=== PATIENT | female | born 1980 | race Hispanic/Latino ===

== ENCOUNTER 2017-08-22 16:15 | Emergency (ER) | payer MEDICAID, OTHER ==
[2017-08-22 16:35] VITALS: BMI 28.8
[2017-08-22 16:38] VITALS: RESP 18; TEMP 98.7
[2017-08-22 18:15] VITALS: O2SAT 96
[2017-08-22] MEDS ORDERED: Tetracaine 0.5% Ophth 2 ML BOTTLE OD STA (18:42)
[2017-08-22] MEDS ORDERED: Tetracaine 0.5% Ophth 2 ML BOTTLE ONE (18:47)
--- NOTE | 2017-08-22 19:01 | ED PDOC ---
Arrival/HPI - General Chief Complaint: Eye Problem Time Seen by Provider: 08/22/17 18:42 Historian: Patient - History of Present Illness Narrative History of Present Illness (Text): 08/22/17 18:53 37-year-old female presents to with foreign body sensation to the right eye. Patient states around 2:30 in the afternoon she felt as if something may have flown into the eye. Patient states she then rubbed her eye and developed pain in the eye. Patient denies headache dizziness or weakness. Patient complaining of burning sensation to the eye. On a side note, Patient states she has been noticing that her vision has been gradually worsening over months now. Patient states she needs to get to the eye doctor but hasn't followed up yet. Patient states while in the emergency room she was crying because her grandfather is 6 and she feels has if the symptoms have resolved. pt also with hx of seasonal allergies. Time/Duration: Other (230pm) Past Medical History - Provider Review Nursing Documentation Reviewed: Yes - Travel History Have you recently traveled outside [place] w/in the past 3 mons?: No - Infectious Disease Hx of Infectious Diseases: None - Musculoskeletal/Rheumatological Hx Back Pain: Yes - Genitourinary/Gynecological Hx Cervical Cancer: Yes - Psychiatric Hx Anxiety: Yes Hx Depression: No Hx Emotional Abuse: No Hx Physical Abuse: No Hx Substance Use: No - Surgical History Hx Cholecystectomy: Yes Hx Tubal Ligation: Yes Other/Comment: CONE BX - Anesthesia Hx Anesthesia: Yes Hx Anesthesia Reactions: No Hx Malignant Hyperthermia: No - Suicidal Assessment Feels Threatened In Home Enviroment: No Family/Social History - Physician Review Nursing Documentation Reviewed: Yes Family/Social History: Unknown Family HX Smoking Status: Heavy Smoker > 10 Cigarettes Daily Hx Alcohol Use: Yes Frequency of alcohol use: Socially Hx Substance Use: No Hx Substance Use Treatment: No Allergies/Home Meds Allergies/Adverse Reactions: Allergies peanut Allergy (Verified 05/28/15 15:10) ANGIOEDEMA Home Medications: Home Meds Medication Instructions Recorded Confirmed ALPRAZolam [Xanax] 1 tab PO BID 08/22/17 08/22/17 oxyCODONE [oxyCODONE Immediate 1 tab PO QID 08/22/17 08/22/17 Release Tab] Review of Systems - Review of Systems Constitutional: absent: Fatigue, Fevers Eyes: Photophobia, Eye Pain, Other (eye irritation) Respiratory: absent: SOB, Cough Cardiovascular: absent: Chest Pain, Palpitations Gastrointestinal: absent: Abdominal Pain, Nausea, Vomiting Genitourinary Female: absent: Dysuria Musculoskeletal: absent: Arthralgias Skin: Pruritis (itchy eyes). absent: Rash Neurological: absent: Headache, Dizziness Physical Exam Vital Signs Reviewed: Yes Vital Signs Temp Pulse Resp BP Pulse Ox 08/22/17 18:14 79 18 114/71 96 08/22/17 16:37 98.7 F 84 18 116/79 95 Temperature: Afebrile Blood Pressure: Normal Pulse: Regular Respiratory Rate: Normal Appearance: Positive for: Well-Appearing, Non-Toxic, Comfortable Pain Distress: None Mental Status: Positive for: Alert and Oriented X 3 - Systems Exam Head: Present: Atraumatic Conjunctiva: Present: Injected (right eye; + conjunctival injection, no purulent discharge; no FB. no pain with eye movement. no periorbital edema or erythema. EOMI, PERRLA) Mouth: Present: Moist Mucous Membranes Respiratory/Chest: Present: Clear to Auscultation Cardiovascular: Present: Regular Rate and Rhythm Neurological: Present: GCS=15 Skin: Present: Warm, Dry Psychiatric: Present: Alert, Oriented x 3 Medical Decision Making ED Course and Treatment: 08/22/17 19:02 Patient is nontoxic well appearing in no distress Visual acuity within normal limits right Conjunctival injection noted, PERRLA, extraocular muscles intact. no foreign body, no dye uptake. no corneal abrasion or ulceration. while in ER patient was crying over her grandfather and feels as if symptoms have completely resolved. pt denies any pain in the eye. will cover patient with abx. advised f/u with PMD and Eye doctor within the next 2 days. advised immediate return if symptoms worsen, persist or if new symptoms develop. Patient verbalizes understanding of discharge instructions and need for immediate followup. all aspects of this case were discussed the attending of record. Impression: Conjunctivitis Tobrex: 2 drops in the affected eye 4 times daily Followup with the eye doctor within the next 2 days Return immediately if symptoms worsen persist or if new symptoms develop; blurry vision, worsening eye pain, worsening redness or any other concerning symptoms develop. Follow up with the primary care physician within the next 2 days Reassessment Condition: Re-examined, Improved - Medication Orders Current Medication Orders: Discontinued Medications Tetracaine HCl (Tetracaine 0.5% Ophth Soln) 1 drop OD STAT STA Stop: 08/22/17 18:43 Disposition/Present on Arrival - Present on Arrival Any Indicators Present on Arrival: No History of DVT/PE: No History of Uncontrolled Diabetes: No Urinary Catheter: No History of Decub. Ulcer: No History Surgical Site Infection Following: None - Disposition Have Diagnosis and Disposition been Completed?: Yes Diagnosis: Conjunctivitis Disposition: HOME/ ROUTINE Disposition Time: 19:04 Patient Plan: Discharge Patient Problems: Current Active Problems Problem Status Onset Conjunctivitis Acute Condition: GOOD Discharge Instructions (ExitCare): Conjunctivitis ([place]) (DC) Additional Instructions: Tobrex: 2 drops in the affected eye 4 times daily Followup with the eye doctor within the next 2 days Return immediately if symptoms worsen persist or if new symptoms develop; blurry vision, worsening eye pain, worsening redness or any other concerning symptoms develop. Follow up with the primary care physician within the next 2 days Prescriptions: Tobramycin 0.3% [Tobramycin 5 Ml] 2 drop OD QID #1 bottle Referrals: Osvaldo Conner JD, MD [Primary Care Provider] - Follow up with primary Rad Vazquez MD [Staff Provider] - Follow up with primary Forms: [facility] (Jamaican), WORK NOTE
[2017-08-23 00:17] VITALS: BP 114/82; PULSE 82
== END 2017-08-22 19:15 | disposition home or self-care (01) ==
LOC: ED 16:15
DX: H10.9 Unspecified conjunctivitis (principal)